=== PATIENT | male | born 1960 | race Caucasian/White ===

== ENCOUNTER 2017-02-25 15:05 | Emergency (ER) | payer BC ==
[2017-02-25 16:55] VITALS: BP 114/77
--- NOTE | 2017-02-25 18:21 | ED ---
Throat Pain/Nasal Congestion - HPI Summary HPI Summary: 56 male presents to ED with complaints of having a contact lense stuck in his right eye that began 1 week ago, Patient has been unable to get it out, states it is stuck under his eye lid. Denies vision loss or changes unless its tearing or contact is in visual field. Admits to some drainage over the past couple of days. Denies itchiness. No other complaints, no pain, just irritation. No PMHx. No medications or evaluation [facility]. No photophobia. - History of Current Complaint Chief Complaint: EDEyeProblem Hx Obtained From: Patient Onset/Duration: Sudden Onset, Lasting Weeks - 1 Severity: Mild Associated Signs And Symptoms: Positive: FB Sensation - right eye, contact lense Cough: None - Allergies/Home Medications Allergies/Adverse Reactions: Allergies Allergy/AdvReac Type Severity Reaction Status Date / Time Prochlorperazine Allergy Intermediate throat Verified 02/25/17 15:13 [From Compazine] swelling Codeine Allergy Mild Hives Verified 02/25/17 15:13 PMH/Surg Hx/FS Hx/Imm Hx Endocrine/Hematology History: Denies: Hx Diabetes Cardiovascular History: Denies: Hx Hypertension, Hx Pacemaker/ICD, Other Cardiovascular Problems/ Disorders Respiratory History: Denies: Other Respiratory Problems/Disorders GI History: Denies: Other GI Disorders Musculoskeletal History: Reports: Hx Back Problems - chronic low back pain Sensory History: Reports: Hx Contacts or Glasses - GLASSES, CONTACTS Denies: Hx Hearing Aid Opthamlomology History: Reports: Hx Contacts or Glasses - GLASSES, CONTACTS Neurological History: Reports: Other Neuro Impairments/Disorders - PAIN CLINIC PT Psychiatric History: Reports: Other Psychiatric Issues/Disorders - suboxone treatment Denies: Hx Panic Disorder - Surgical History Surgery Procedure, Year, and Place: hemilaminectomy 2008 Dr Sly Blake. ORIF right ring finger 2016 [facility] [place] Hx Anesthesia Reactions: No - Immunization History Immunizations Up to Date: Yes Infectious Disease History: No Infectious Disease History: Reports: Hx Hepatitis - HEP C Denies: History Other Infectious Disease, Traveled Outside the [place] in Last 30 Days - Family History Known Family History: Positive: None - Social History Alcohol Use: None Alcohol Amount: 2-4 PER WEEK Substance Use Type: Reports: None Smoking Status (MU): Former Smoker Type: Cigarettes Amount Used/How Often: 10 CIGS PER DAY Have You Smoked in the Last Year: Yes Review of Systems Constitutional: Negative Positive: Drainage, Erythema, Other - contact lense stuck in eye ENT: Negative Cardiovascular: Negative Respiratory: Negative Neurological: Negative All Other Systems Reviewed And Are Negative: Yes Physical Exam Triage Information Reviewed: Yes Vital Signs On Initial Exam: Initial Vitals Temp Pulse Resp BP Pulse Ox 97.9 F 73 16 122/78 96 02/25/17 15:14 02/25/17 15:14 02/25/17 15:14 02/25/17 15:14 02/25/17 15:14 Vital Signs Reviewed: Yes Appearance: Positive: Well-Appearing, No Pain Distress, Well-Nourished Skin: Positive: Warm, Dry. Negative: Cold, Cyanosis @, Pale, Erythema @ Head/Face: Positive: Normal Head/Face Inspection Eyes: Positive: EOMI, HOA, Conjunctiva Inflammed, Discharge - yellow-clear, some purulent, Other: - contact lense stuck in lower corner lateral right eye, removed without complication after numbing, with q-tip. no left over FB. entire contact lense removed. appears infected. left eye normal ENT: Positive: Normal ENT inspection, Hearing grossly normal, TMs normal Respiratory/Lung Sounds: Positive: Clear to Auscultation, Breath Sounds Present. Negative: Rales, Rhonchi, Wheezes Cardiovascular: Positive: Normal, RRR, Pulses are Symmetrical in both Upper and Lower Extremities. Negative: Murmur, Rub Musculoskeletal: Positive: Strength/ROM Intact Neurological: Positive: Normal, Sensory/Motor Intact, Alert, Oriented to Person Place, Time Procedures - Eye Procedure Alcaine Drops Administered: Yes - right eye contact lense removed without complication, tolerated well Eye FB Removal: removal w/ cotton swab Eye Irrigated w/ Saline (ccs): 100 Diagnostics - Vital Signs Vital Signs Temp Pulse Resp BP Pulse Ox 02/25/17 16:44 98.6 F 80 17 114/77 95 02/25/17 15:14 97.9 F 73 16 122/78 96 - Laboratory Lab Statement: Any lab studies that have been ordered have been reviewed, and results considered in the medical decision making process. EENT Course/Dx - Course Course Of Treatment: contact lense of right eye was removed without complication using qtip. patient tolerated procedure well. no other complaints. sent over antibiotic drops for conjunctivitis due to FB. Follow up with optho if new or worse symptoms. aware of worsening signs and symptoms. - Differential Diagnoses Differential Diagnoses: Conjunctivitis, Corneal Abrasion, Foreign Body - Diagnoses Provider Diagnoses: FB eye, Conjunctivitis, right eye Discharge - Discharge Plan Condition: Stable Disposition: HOME Prescriptions: Moxifloxacin 0.5% OPHTH(NF) [Vigamox 0.5% OPHTH(NF)] 1 drop RIGHT EYE Q3HR #1 [email or web address] Patient Education Materials: Eye Foreign Body (ED), Conjunctivitis (ED) Referrals: Carlo Melendez MD [Primary Care Provider] - Additional Instructions: use prescribed medication as directed for 7 days in right eye. do not touch eyes with fingers. do not wear contacts for atleast 7 days. when you do, wear new contacts and take out at bedtime. follow up wit eye doctor if new or worsening symptoms.
== END 2017-02-25 18:32 | disposition home or self-care (01) ==
LOC: ED 15:05
DX: T15.91XA Foreign body on external eye, part unspecified, right eye, initial encounter (principal); X58.XXXA Exposure to other specified factors, initial encounter; Y92.9 Unspecified place or not applicable; B19.20 Unspecified viral hepatitis C without hepatic coma; Z88.5 Allergy status to narcotic agent; M54.5 Low back pain; G89.29 Other chronic pain; Z87.891 Personal history of nicotine dependence
CPT/HCPCS: 99282

== ENCOUNTER → 2017-06-16 17:00 | Emergency (ER) | payer BC | END | disposition left against medical advice (07) | LOC: ED 17:00 | DX: T59.91XA Toxic effect of unspecified gases, fumes and vapors, accidental (unintentional), initial encounter (principal); Y92.9 Unspecified place or not applicable; Z53.21 Procedure and treatment not carried out due to patient leaving prior to being seen by health care provider ==

== ENCOUNTER 2017-06-17 14:11 | Emergency (ER) | payer SELFPAY ==
[2017-06-17 16:59] VITALS: BP 129/89
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
== END 2017-06-17 16:58 | disposition home or self-care (01) ==
LOC: ED 14:11
DX: M54.30 Sciatica, unspecified side (principal); M54.5 Low back pain; Z87.891 Personal history of nicotine dependence
CPT/HCPCS: 99281

== ENCOUNTER 2018-01-31 22:27 | Emergency (ER) | payer BC ==
[2018-01-31] MEDS ORDERED: Ciprofloxacin 0.3% OPTH.SOL* 2.5 ML BTL RIGHT EYE ONE (22:44)
--- NOTE | 2018-01-31 22:46 | ED ---
Throat Pain/Nasal Congestion - HPI Summary HPI Summary: 57 year old male presents with contact in left eye for the past 2 days. He states been having some mucous discharge. He states that he tried to remove the contact. He denies any feeling that he scratched his cornea. He denies any change in vision. He has not been wearing contacts. He has minimal pain. States this has happened before. - History of Current Complaint Chief Complaint: EDEyeProblem Time Seen by Provider: 01/31/18 22:40 - Allergies/Home Medications Allergies/Adverse Reactions: Allergies Allergy/AdvReac Type Severity Reaction Status Date / Time codeine Allergy Hives Verified 01/31/18 22:32 prochlorperazine Allergy THROAT Verified 01/31/18 22:32 [From Compazine] SWELLING PMH/Surg Hx/FS Hx/Imm Hx Endocrine/Hematology History: Denies: Hx Diabetes Cardiovascular History: Denies: Hx Hypertension, Hx Pacemaker/ICD, Other Cardiovascular Problems/ Disorders Respiratory History: Denies: Other Respiratory Problems/Disorders GI History: Denies: Other GI Disorders Musculoskeletal History: Reports: Hx Back Problems - chronic low back pain Sensory History: Reports: Hx Contacts or Glasses - GLASSES, CONTACTS Denies: Hx Hearing Aid Opthamlomology History: Reports: Hx Contacts or Glasses - GLASSES, CONTACTS Neurological History: Reports: Other Neuro Impairments/Disorders - PAIN CLINIC PT Psychiatric History: Reports: Other Psychiatric Issues/Disorders - suboxone treatment Denies: Hx Panic Disorder - Surgical History Surgery Procedure, Year, and Place: hemilaminectomy 2008 Dr Sly Blake. ORIF right ring finger [place] [facility] [place] Hx Anesthesia Reactions: No Infectious Disease History: No Infectious Disease History: Reports: Hx Hepatitis - HEP C Denies: History Other Infectious Disease, Traveled Outside the [place] in Last 30 Days - Family History Known Family History: Positive: None Negative: Cardiac Disease - Social History Alcohol Use: None Alcohol Amount: 2-4 PER WEEK Substance Use Type: Reports: None Smoking Status (MU): Former Smoker Type: Cigarettes Amount Used/How Often: 10 CIGS PER DAY Have You Smoked in the Last Year: Yes Review of Systems Negative: Fever Positive: Other - foreign body left eye Negative: Chest Pain Negative: Shortness Of Breath All Other Systems Reviewed And Are Negative: Yes Physical Exam Triage Information Reviewed: Yes Vital Signs On Initial Exam: Initial Vitals Temp Pulse Resp BP Pulse Ox 97.5 F 80 16 133/87 95 01/31/18 22:29 01/31/18 22:29 01/31/18 22:29 01/31/18 22:29 01/31/18 22:29 Vital Signs Reviewed: Yes Appearance: Positive: Well-Appearing Skin: Positive: Warm, Dry Head/Face: Positive: Normal Head/Face Inspection Eyes: Positive: Normal, EOMI, HOA, Conjunctiva Inflammed, Other: - removed contact from left eye ENT: Positive: Pharynx normal Respiratory/Lung Sounds: Positive: Clear to Auscultation, Breath Sounds Present Cardiovascular: Positive: Normal, RRR Musculoskeletal: Positive: Normal Neurological: Positive: Normal Psychiatric: Positive: Normal Procedures - Eye Procedure Left Eye FB Removal: removal w/ cotton swab Diagnostics - Vital Signs Vital Signs Temp Pulse Resp BP Pulse Ox 01/31/18 22:29 97.5 F 80 16 133/87 95 - Laboratory Lab Statement: Any lab studies that have been ordered have been reviewed, and results considered in the medical decision making process. EENT Course/Dx - Course Course Of Treatment: 57 year old male presents with contact in left eye for the past 2 days. He states been having some mucous discharge. He states that he tried to remove the contact. He denies any feeling that he scratched his cornea. He denies any change in vision. He has not been wearing contacts. He has minimal pain. States this has happened before. On exam has contact in left eye. removed contact. Discussed do not have flu-more but will treat as an abrasion with Cipro. Patient will follow up with optho if no improvement. Patient understands and agrees with plan. - Differential Diagnoses Differential Diagnoses: Conjunctivitis, Corneal Abrasion, Foreign Body - Diagnoses Provider Diagnoses: Foreign body in eye Discharge - Sign-Out/Discharge Documenting (check all that apply): Patient Departure - Discharge Plan Condition: Good Disposition: HOME Patient Education Materials: Eye Foreign Body (ED) Referrals: Carlo Melendez MD [Primary Care Provider] - Chidi Pack MD [Medical Doctor] - Additional Instructions: Place 1 drop in eye 4 times a day for 5 days Use artificial tears or saline to rinse eye for symptomatic relief Take Tylenol or ibuprofen for pain Follow up with ophthalmology if no improvement in 5 days Return to ED if develop any new or worsening symptoms - Billing Disposition and Condition Condition: GOOD Disposition: Home
[2018-01-31 23:44] VITALS: BP 0/0
== END 2018-01-31 23:43 | disposition home or self-care (01) ==
LOC: ED 22:27
DX: T15.92XA Foreign body on external eye, part unspecified, left eye, initial encounter (principal); X58.XXXA Exposure to other specified factors, initial encounter; Y92.9 Unspecified place or not applicable
CPT/HCPCS: 99281; A9270-GY

== ENCOUNTER 2018-02-27 11:08 | Emergency (ER) | payer BC ==
--- NOTE | 2018-02-27 12:09 | ED ---
Abdominal Pain/Male - HPI Summary HPI Summary: 57 year old M presenting to [facility] complains of intermittent episodes of LLQ abdominal pain lasting 30 minutes since 20:00 last night, worse since two hours ago. He describes the pain as dull/aching/exhausting. Symptoms aggravated by exertion. Symptoms alleviated by lying down. Patient reports fatigue. He states that the episodes of pain are preceded by physical activity. Patient lifted weights at gym last night before abdominal pain onset and was mowing lawn this morning before pain started again. He describes a similar episode of abdominal pain two months ago while he was visiting his niece in [place]. - History of Current Complaint Chief Complaint: EDAbdPain Stated Complaint: ABD PAIN Time Seen by Provider: 02/27/18 11:49 Hx Obtained From: Patient Onset/Duration: Lasting Days - 1, Still Present Timing: Intermittent, Lasting Minutes - 30 Location: Discrete At: LLQ Character: Dull, Other: - ache, exhausting Aggravating Factor(s): Other: - exertion Alleviating Factor(s): Other: - lying down Associated Signs And Symptoms: Positive: Other - fatigue - Allergies/Home Medications Allergies/Adverse Reactions: Allergies Allergy/AdvReac Type Severity Reaction Status Date / Time codeine Allergy Hives Verified 02/27/18 11:18 prochlorperazine Allergy THROAT Verified 02/27/18 11:18 [From Compazine] SWELLING Home Medications: Home Medications Nicotine PATCH 21 MG/24 HR* 1 patch TRANSDERM DAILY 02/27/18 [History Confirmed 02/27/18] PMH/Surg Hx/FS Hx/Imm Hx Previously Healthy: No Endocrine/Hematology History: Denies: Hx Diabetes Cardiovascular History: Denies: Hx Hypertension, Hx Pacemaker/ICD, Other Cardiovascular Problems/ Disorders Respiratory History: Denies: Other Respiratory Problems/Disorders GI History: Denies: Other GI Disorders Musculoskeletal History: Reports: Hx Back Problems - chronic low back pain Sensory History: Reports: Hx Contacts or Glasses - GLASSES, CONTACTS Denies: Hx Hearing Aid Opthamlomology History: Reports: Hx Contacts or Glasses - GLASSES, CONTACTS Neurological History: Reports: Other Neuro Impairments/Disorders - PAIN CLINIC PT Psychiatric History: Reports: Hx Substance Abuse, Other Psychiatric Issues/ Disorders - suboxone treatment Denies: Hx Panic Disorder - Surgical History Surgery Procedure, Year, and Place: hemilaminectomy 2009 Dr Sly Blake. [place] right ring finger [place] [facility] [place] Anesthesia Reactions: No Infectious Disease History: Yes Infectious Disease History: Reports: Hx Hepatitis - HEP C Denies: History Other Infectious Disease, Traveled Outside the [place] in Last 30 Days - Family History Known Family History: Positive: Other - rheumatoid arthritis Negative: Cardiac Disease - Social History Alcohol Use: Weekly Alcohol Amount: 2-4 PER WEEK Hx Substance Use: Yes Hx Tobacco Use: Yes Smoking Status (MU): Former Smoker Type: Cigarettes Amount Used/How Often: 10 CIGS PER DAY Have You Smoked in the Last Year: Yes Review of Systems Positive: Fatigue Positive: Abdominal Pain All Other Systems Reviewed And Are Negative: Yes Physical Exam - Summary Physical Exam Summary: Appearance: The patient is well-nourished in no acute distress and in no acute pain. Skin: The skin is warm and dry and skin color reflects adequate perfusion. HEENT: The head is normocephalic and atraumatic. The pupils are equal and reactive. The conjunctivae are clear and without drainage. Nares are patent and without drainage. Mouth reveals moist mucous membranes and the throat is without erythema and exudate. The external ears are intact. The ear canals are patent and without drainage. The tympanic membranes are intact. Neck: The neck is supple with full range of motion and non-tender. There are no carotid bruits. There is no neck vein distension. Respiratory: Chest is non-tender. Lungs are clear to auscultation and breath sounds are symmetrical and equal. Cardiovascular: Heart is regular rate and rhythm. There is no murmur or rub auscultated. There is no peripheral edema and pulses are symmetrical and equal. Abdomen: The abdomen is soft and non-tender. There are normal bowel sounds heard in all four quadrants and there is no organomegaly palpated. Musculoskeletal: There is no back tenderness noted. Extremities are non-tender with full range of motion. There is good capillary refill. There is no peripheral edema or calf tenderness elicited. Neurological: Patient is alert and oriented to person, place and time. The patient has symmetrical motor strength in all four extremities. Cranial nerves are grossly intact. Deep tendon reflexes are symmetrical and equal in all four extremities. Psychiatric: The patient has an appropriate affect and does not exhibit any anxiety or depression. Triage Information Reviewed: Yes Vital Signs On Initial Exam: Initial Vitals Temp Pulse Resp BP Pulse Ox 97.9 F 74 16 112/79 97 02/27/18 11:13 02/27/18 11:13 02/27/18 11:13 02/27/18 11:13 02/27/18 11:13 Vital Signs Reviewed: Yes Diagnostics - Vital Signs Vital Signs Temp Pulse Resp BP Pulse Ox 02/27/18 11:13 97.9 F 74 16 112/79 97 - Laboratory Result Diagrams: 02/27/18 12:05 02/27/18 12:05 Lab Statement: Any lab studies that have been ordered have been reviewed, and results considered in the medical decision making process. - EKG 1150 Cardiac Rate: NL - 69 BPM EKG Rhythm: Sinus Rhythm ST Segment: Normal Ectopy: None EKG Interpretation: Normal sinus rhythm, normal ST, no ectopy, no STEMI Re-Evaluation - Re-Evaluation First Eval Re-Evaluation Time: 14:49 Comment: Patient feels fine and is aware that we are awaiting second troponin test Second Eval Re-Evaluation Time: 16:11 Comment: Patient is updated on his second troponin test, which was normal. He is agreeable to discharge. Abdominal Pain Fem Course/Dx - Course Course Of Treatment: Mr. Mccormick presented complaining that while he was mowing the lawn this morning he suddenly felt a complete exhaustion feeling that required that he lied down. He is equivocal but also feeling a dull ache or pressure sensation in his left periumbilical area. He had a similar episode yesterday evening. He had been working out in the gym and came home and loaded a couple of items into the truck and went inside and then it occurred. Both episodes resolved after resting. He had a similar episode about a month ago that lasted about 6 hours. Yesterday while he was at the gym he felt fine and exercised hard. He had stable vital signs and was nontoxic in appearance on arrival and was placed on the monitor and labs were drawn. Labs including a delayed troponin were negative. He did have microscopic hematuria. We discussed the differential for his symptoms which is large given the vagueness. This could be an anginal equivalent but his troponins are fine and it is not consistently with exercise. This could be a kidney stone which she has had before but he didn't really have any pain. I recommended close follow-up with his PCP and do not think that anything immediately dangerous is happening. - Diagnoses Provider Diagnoses: Near syncope Discharge - Sign-Out/Discharge Documenting (check all that apply): Patient Departure - Discharge - Discharge Plan Condition: Stable Disposition: HOME Patient Education Materials: Near Syncope (ED) Referrals: Carlo Melendez MD [Primary Care Provider] - 2 Days Additional Instructions: Follow up with your primary care provider in 2 days. RETURN TO THE EMERGENCY DEPARTMENT FOR NEW OR WORSENING SYMPTOMS. - Billing Disposition and Condition Condition: STABLE Disposition: Home - Attestation Statements Document Initiated by Scribe: Yes Documenting Scribe: Petra Hampton Provider For Whom Scribe is Documenting (Include Credential): Rodrigo Che MD Scribe Attestation: IPetra, scribed for Rodrigo Che MD on 02/27/18 at 1800. Scribe Documentation Reviewed: Yes Provider Attestation: The documentation as recorded by the scribePetra accurately reflects the service I personally performed and the decisions made by me, Rodrigo Che MD
[2018-02-27 12:15] LABS: ABS Basophils 0 10^3/ul (0-0.2); ABS Eosinophils 0.2 10^3/ul (0-0.6); ABS Lymphocytes 2.7 10^3/ul (1.0-4.8); ABS Monocytes 0.5 10^3/ul (0-0.8); ABS Neutrophils 4.6 10^3/ul (1.5-7.7); ABS Nucleated RBC 0 10^3/ul; Eosinophil % 1.9 % (0-6); Hematocrit 44 % (42-52); Hemoglobin 15.1 g/dl (14.0-18.0); Lymphocyte % 34.1 % (25-47); Mean Corpuscular HGB Conc 34 g/dl (31-36); Mean Corpuscular Hemoglobin 31 pg (27-31); Mean Corpuscular Volume 90 fL (80-94); Mean Platelet Volume 9.7 um3 (7.4-10.4); Nucleated Red Blood Cells % 0.1; Platelet Count 185 10^3/ul (150-450); Red Blood Count 4.92 10^6/ul (4.00-5.40); Red Cell Distribution Width 13 % (10.5-15)
[2018-02-27 12:31] LABS: EGFR Non-African American 96.2 (>60)
[2018-02-27 15:03] LABS: Urine Appearance Cloudy; Urine Blood 3+ (Negative); Urine Color Yellow; Urine Ketones Trace (Negative); Urine Protein 1+(30 mg/dL) (Negative); Urine Red Blood Cell 3+(>10/hpf) (Absent); Urine Specific Gravity 1.026 (1.010-1.030); Urine Urobilinogen Negative (Negative); Urine White Blood Cell Trace(0-5/hpf) (Absent)
[2018-02-27 16:23] VITALS: BP 130/84
== END 2018-02-27 16:23 | disposition home or self-care (01) ==
LOC: ED 11:08
DX: R55 Syncope and collapse (principal)
CPT/HCPCS: 36415; 80053; 81003; 81015; 83605; 84484; 85025; 86140; 87086; 93005; 99283

== ENCOUNTER 2018-03-03 10:31 | Emergency (ER) | payer BC ==
[2018-03-03] MEDS ORDERED: Ondansetron INJ* 2 MG/ML VIAL IV ONE (11:17)
[2018-03-03] MEDS ORDERED: Ketorolac INJ* 30 MG/ML 1 ML VIAL IV PUSH ONE (11:17)
[2018-03-03] MEDS ORDERED: NS 0.9% 1000 ML* 1,000 ML IV ONE (11:18)
[2018-03-03 11:35] LABS: ABS Basophils 0 10^3/ul (0-0.2); ABS Eosinophils 0.1 10^3/ul (0-0.6); ABS Lymphocytes 2.1 10^3/ul (1.0-4.8); ABS Monocytes 0.5 10^3/ul (0-0.8); ABS Nucleated RBC 0 10^3/ul; Eosinophil % 0.6 % (0-6); Hematocrit 45 % (42-52); Hemoglobin 15.1 g/dl (14.0-18.0); Lymphocyte % 16.3 % (25-47); Mean Corpuscular HGB Conc 34 g/dl (31-36); Mean Corpuscular Hemoglobin 31 pg (27-31); Mean Corpuscular Volume 90 fL (80-94); Mean Platelet Volume 9.2 um3 (7.4-10.4); Nucleated Red Blood Cells % 0; Platelet Count 178 10^3/ul (150-450); Red Blood Count 4.97 10^6/ul (4.00-5.40); Red Cell Distribution Width 13 % (10.5-15); White Blood Count 12.7 10^3/ul (3.5-10.8)
[2018-03-03 12:18] LABS: EGFR Non-African American 82.1 (>60)
[2018-03-03] MEDS ORDERED: Iohexol 300* (CONTRAST) 10 ML SDV IV ONE (13:58)
--- NOTE | 2018-03-03 14:56 | RAD ---
INDICATION: Left lower quadrant abdominal pain. COMPARISON: There are no relevant prior studies available for comparison. TECHNIQUE: A CT scan of the abdomen and pelvis was performed with intravenous and without oral contrast following intravenous injection of 136 ml of Omnipaque 300 nonionic contrast. Contiguous axial sections were obtained from the lung bases through the symphysis pubis. Images were reconstructed in the coronal and sagittal planes. FINDINGS: LUNGS: There is mild dependent bilateral lower lobe subsegmental atelectasis. No pleural effusion is present. LIVER: The liver is normal in size. There are a few small hypodense lesions within the liver measuring up to 4 mm in size which are too small to characterize by CT possibly representing small cysts. GALLBLADDER: No calcified gallstones are seen. BILE DUCTS: No intra or extrahepatic ductal distention is seen. SPLEEN: The spleen is normal in size without significant focal abnormality. PANCREAS: The pancreas is normal in size. No ductal distention or calcifications are seen. ADRENAL GLANDS: The adrenal glands are normal in size. KIDNEYS: The kidneys are normal in size. No renal calculi are seen. There appear to be 2 calculi present in the proximal left ureter. The larger calculus measures 4 x1.5 mm in size and the smaller calculus measures approximately 3 x 1 mm in size. These are causing moderate hydronephrosis. There is left perinephric stranding and a delayed nephrogram. AORTA: The aorta is normal in caliber without significant calcific plaque. LYMPH NODES: No significantly enlarged lymph nodes are seen. BOWEL: The stomach, small and large bowel appear nondistended. The appendix appears to be within normal limits. There are few scattered diverticuli. There is no evidence for diverticulitis or colitis. PELVIC ORGANS: No bladder wall thickening or calculi are seen. The prostate gland is normal in size. PERITONEUM: No free intraperitoneal air or fluid is seen. BONES: No significant focal osseous abnormality is seen. IMPRESSION: THERE ARE 2 CALCULI IN THE PROXIMAL LEFT URETER CAUSING MODERATE HYDRONEPHROSIS.
[2018-03-03 15:51] LABS: Urine Appearance Clear; Urine Blood 2+ (Negative); Urine Color Yellow; Urine Ketones Negative (Negative); Urine Protein Negative (Negative); Urine Red Blood Cell 3+(>10/hpf) (Absent); Urine Urobilinogen Negative (Negative); Urine White Blood Cell Trace(0-5/hpf) (Absent)
[2018-03-03 16:30] VITALS: BP 129/86
--- NOTE | 2018-03-05 13:23 | ED ---
Abdominal Pain/Male - HPI Summary HPI Summary: Pt. is a 57 y.o male who presents to the ER for abd. pain and vomiting x several days. Pt. was seen in ED 4 days ago for similar symptoms. Denies past medical history other than narcotic addiction and is currently on suboxone. Pt. denies fever, CP, SOB, diarrhea, urinary sxs. Pain is constant without modifying factors. Pain is located to left side and groin. No testicle pain or swelling. Sxs are moderate in severity. - History of Current Complaint Chief Complaint: EDAbdPain Stated Complaint: LT FLANK PAIN Time Seen by Provider: 03/03/18 11:08 Hx Obtained From: Patient Pain Intensity: 0 Pain Scale Used: 0-10 Numeric - Allergies/Home Medications Allergies/Adverse Reactions: Allergies Allergy/AdvReac Type Severity Reaction Status Date / Time codeine Allergy Hives Verified 03/03/18 11:55 prochlorperazine Allergy THROAT Verified 03/03/18 11:55 [From Compazine] SWELLING Home Medications: Home Medications Nicotine PATCH 21 MG/24 HR* 21 mg TRANSDERM DAILY 03/03/18 [History Confirmed ] PMH/Surg Hx/FS Hx/Imm Hx Previously Healthy: Yes Endocrine/Hematology History: Denies: Hx Diabetes Cardiovascular History: Denies: Hx Hypertension, Hx Pacemaker/ICD, Other Cardiovascular Problems/ Disorders Respiratory History: Denies: Other Respiratory Problems/Disorders GI History: Denies: Other GI Disorders History: Denies: Hx Renal Disease Musculoskeletal History: Reports: Hx Back Problems - chronic low back pain Sensory History: Reports: Hx Contacts or Glasses - GLASSES, CONTACTS Denies: Hx Hearing Aid Opthamlomology History: Reports: Hx Contacts or Glasses - GLASSES, CONTACTS Neurological History: Reports: Other Neuro Impairments/Disorders - PAIN CLINIC PT Psychiatric History: Reports: Hx Substance Abuse, Other Psychiatric Issues/ Disorders - suboxone treatment Denies: Hx Panic Disorder - Surgical History Surgery Procedure, Year, and Place: hemilaminectomy 2008 Dr Sly Blake. ORIF right ring finger [place] [facility] [place]x Anesthesia Reactions: No - Immunization History Immunizations Up to Date: Yes Infectious Disease History: No Infectious Disease History: Reports: Hx Hepatitis - HEP C Denies: History Other Infectious Disease, Traveled Outside the US in Last 30 Days - Family History Known Family History: Positive: Other - rheumatoid arthritis Negative: Cardiac Disease - Social History Occupation: Employed Full-time Lives: With Family Alcohol Use: Weekly Alcohol Amount: 2-4 PER WEEK Hx Substance Use: Yes Substance Use Type: Reports: None Substance Use Comment - Amount & Last Used: history of substance abuse on Suboxone Hx Tobacco Use: Yes Smoking Status (MU): Former Smoker Type: Cigarettes Amount Used/How Often: 10 CIGS PER DAY Have You Smoked in the Last Year: Yes Review of Systems Constitutional: Negative Eyes: Negative ENT: Negative Cardiovascular: Negative Respiratory: Negative Positive: Abdominal Pain, Vomiting Genitourinary: Negative Musculoskeletal: Negative Neurological: Negative All Other Systems Reviewed And Are Negative: Yes Physical Exam Triage Information Reviewed: Yes Vital Signs On Initial Exam: Initial Vitals Temp Pulse Resp BP Pulse Ox 96.0 F 67 14 137/89 100 03/03/18 10:47 03/03/18 10:47 03/03/18 10:47 03/03/18 10:47 03/03/18 10:47 Vital Signs Reviewed: Yes Appearance: Positive: Pain Distress - Pt. sitting on side of bed, poor eye contact, diaphoretic and pale. Skin: Positive: Warm, Dry Head/Face: Positive: Normal Head/Face Inspection Eyes: Positive: Normal, EOMI Neck: Positive: Supple Respiratory/Lung Sounds: Positive: Clear to Auscultation, Breath Sounds Present Cardiovascular: Positive: Normal, RRR Abdomen Description: Positive: Other: - ABd. is soft with pain across the lower quadrants. No rebound tenderness or gaurding. Neurological: Positive: Normal, CN Intact II-III Psychiatric: Positive: Affect/Mood Appropriate Diagnostics - Vital Signs Vital Signs Temp Pulse Resp BP Pulse Ox 03/03/18 16:31 98.5 F 88 18 129/86 97 03/03/18 16:30 98.5 F 88 18 129/86 97 03/03/18 16:00 90 17 96 03/03/18 15:51 90 13 136/90 89 03/03/18 15:22 92 18 137/86 97 03/03/18 15:00 88 14 94 03/03/18 14:51 90 16 105/69 95 03/03/18 14:00 88 11 95 03/03/18 13:51 86 12 112/76 97 03/03/18 13:21 86 14 124/81 95 03/03/18 13:00 78 21 98 03/03/18 12:51 66 17 144/96 96 03/03/18 12:21 71 16 140/95 97 03/03/18 12:00 69 13 97 03/03/18 11:51 74 6 143/96 96 03/03/18 11:50 70 98 03/03/18 10:47 96.0 F 67 14 137/89 100 - Laboratory Lab Results: Lab Results 03/03/18 03/03/18 03/03/18 Range/Units 11:26 11:26 11:26 WBC 12.7 H (3.5-10.8) 10^3/ul RBC 4.97 (4.00-5.40) 10^6/ul Hgb 15.1 (14.0-18.0) g/dl Hct 45 (42-52) % MCV 90 (80-94) fL MCH 31 (27-31) pg MCHC 34 (31-36) g/dl RDW 13 (10.5-15) % Plt Count 178 (150-450) 10^3/ul MPV 9.2 (7.4-10.4) um3 Neut % (Auto) 78.6 (38-83) % Lymph % (Auto) 16.3 L (25-47) % Bollinger % (Auto) 4.2 (0-7) % Eos % (Auto) 0.6 (0-6) % Baso % (Auto) 0.3 (0-2) % Absolute Neuts (auto) 10.0 H (1.5-7.7) 10^3/ul Absolute Lymphs (auto) 2.1 (1.0-4.8) 10^3/ul Absolute Monos (auto) 0.5 (0-0.8) 10^3/ul Absolute Eos (auto) 0.1 (0-0.6) 10^3/ul Absolute Basos (auto) 0 (0-0.2) 10^3/ul Absolute Nucleated RBC 0 10^3/ul Nucleated RBC % 0 Sodium 138 (135-145) mmol/L Potassium 4.4 (3.5-5.0) mmol/L Chloride 106 (101-111) mmol/L Carbon Dioxide 25 (22-32) mmol/L Anion Gap 7 (2-11) mmol/L BUN 14 (6-24) mg/dL Creatinine 0.94 (0.67-1.17) mg/dL Est GFR ( Amer) 99.4 (>60) Est GFR (Non-Af Amer) 82.1 (>60) BUN/Creatinine Ratio 14.9 (8-20) Glucose 152 H (70-100) mg/dL Lactic Acid 1.6 (0.5-2.0) mmol/L Calcium 9.3 (8.6-10.3) mg/dL Total Bilirubin 0.60 (0.2-1.0) mg/dL AST 26 (13-39) U/L ALT 19 (7-52) U/L Alkaline Phosphatase 55 (34-104) U/L Troponin I 0.00 (<0.04) ng/mL C-Reactive Protein < 1.00 (<8.01) mg/L Total Protein 7.4 (6.4-8.9) g/dL Albumin 4.5 (3.2-5.2) g/dL Globulin 2.9 (2-4) g/dL Albumin/Globulin Ratio 1.6 (1-3) Lipase 12 (11.0-82.0) U/L Urine Color Urine Appearance Urine pH (5-9) Ur Specific [place] (1.010-1.030) Urine Protein (Negative) Urine Ketones (Negative) Urine Blood (Negative) Urine Nitrate (Negative) Urine Bilirubin (Negative) Urine Urobilinogen (Negative) Ur Leukocyte Esterase (Negative) Urine WBC (Auto) (Absent) Urine RBC (Auto) (Absent) Urine Bacteria (Absent) Urine Yeast (Absent) Urine Glucose (Negative) 03/03/18 Range/Units 15:17 WBC (3.5-10.8) 10^3/ul RBC (4.00-5.40) 10^6/ul Hgb (14.0-18.0) g/dl Hct (42-52) % MCV (80-94) fL MCH (27-31) pg MCHC (31-36) g/dl RDW (10.5-15) % Plt Count (150-450) 10^3/ul MPV (7.4-10.4) um3 Neut % (Auto) (38-83) % Lymph % (Auto) (25-47) % Bollinger % (Auto) (0-7) % Eos % (Auto) (0-6) % Baso % (Auto) (0-2) % Absolute Neuts (auto) (1.5-7.7) 10^3/ul Absolute Lymphs (auto) (1.0-4.8) 10^3/ul Absolute Monos (auto) (0-0.8) 10^3/ul Absolute Eos (auto) (0-0.6) 10^3/ul Absolute Basos (auto) (0-0.2) 10^3/ul Absolute Nucleated RBC 10^3/ul Nucleated RBC % Sodium (135-145) mmol/L Potassium (3.5-5.0) mmol/L Chloride (101-111) mmol/L Carbon Dioxide (22-32) mmol/L Anion Gap (2-11) mmol/L BUN (6-24) mg/dL Creatinine (0.67-1.17) mg/dL Est GFR ( Amer) (>60) Est GFR (Non-Af Amer) (>60) BUN/Creatinine Ratio (8-20) Glucose (70-100) mg/dL Lactic Acid (0.5-2.0) mmol/L Calcium (8.6-10.3) mg/dL Total Bilirubin (0.2-1.0) mg/dL AST (13-39) U/L ALT (7-52) U/L Alkaline Phosphatase (34-104) U/L Troponin I (<0.04) ng/mL C-Reactive Protein (<8.01) mg/L Total Protein (6.4-8.9) g/dL Albumin (3.2-5.2) g/dL Globulin (2-4) g/dL Albumin/Globulin Ratio (1-3) Lipase (11.0-82.0) U/L Urine Color Yellow Urine Appearance Clear Urine pH 6.0 (5-9) Ur Specific [place] 1.040 H (1.010-1.030) Urine Protein Negative (Negative) Urine Ketones Negative (Negative) Urine Blood 2+ A (Negative) Urine Nitrate Negative (Negative) Urine Bilirubin Negative (Negative) Urine Urobilinogen Negative (Negative) Ur Leukocyte Esterase Negative (Negative) Urine WBC (Auto) Trace(0-5/hpf) (Absent) Urine RBC (Auto) 3+(>10/hpf) A (Absent) Urine Bacteria Absent (Absent) Urine Yeast Present A (Absent) Urine Glucose Negative (Negative) Result Diagrams: 03/03/18 11:26 03/03/18 11:26 Lab Statement: Any lab studies that have been ordered have been reviewed, and results considered in the medical decision making process. Abdominal Pain Fem Course/Dx - Course Course Of Treatment: Pt. presenting with ongoing abd. pain and vomiting. On initial exam pt. is diaphoretic and pale. He appears in significant discomfort. He was placed on monitor and IV started. Will obtain labs, ecg and ct scan. He was given iv fluids, zofran and toradol. ECG is uncharged from prior tracing several days ago, no STEMI. Labs show mild WBC of 12.7 ,otherwise unremarkable. U/A shows elevated specific gravity and blood without signs of infection. CT scan shows a 2 proximal calculus in the left proximal ureter with moderate hydro , stones measure 4 and 3mm, reading per radiology. On re-exam pt. is feeling much better and is tolerating POs. Pain has improved. Results discuseed. Will rx zofran and flomax. To increae fluids and strain urine. Can rotate between tylenol and motrin for pain control. To schedule f.u with urology if sxs persist. To return to ER for increased pain, vomting, fever. Pt .understands and agrees with plan. - Diagnoses Differential Diagnosis/HQI/PQRI: Abdominal Aortic Aneurysm, ACS, AMI, Appendicitis, Bowel Obstruction, Diverticulitis, Ischemic Bowel, Renal Colic, Ureteral Stone Provider Diagnoses: Hydronephrosis, Urolithiasis Discharge - Sign-Out/Discharge Documenting (check all that apply): Patient Departure - Discharge Plan Condition: Good Disposition: HOME Prescriptions: Ondansetron TAB* [Zofran 4 MG Tab*] 4 mg PO Q6H PRN #12 tab PRN Reason: Nausea Tamsulosin CAP* [Flomax CAP*] 0.4 mg PO DAILY #5 cap Patient Education Materials: Kidney Stones (ED) Referrals: Carlo Melendez MD [Primary Care Provider] - Chance Soto MD [Medical Doctor] - Additional Instructions: Schedule a follow up appointment with urology and PCP Take medication as directed Increase fluids and rest Strain urine Can rotate between tylenol and motrin for pain control Return to ER for uncontrollable vomiting, pain or fever - Billing Disposition and Condition Condition: GOOD Disposition: Home
== END 2018-03-03 16:31 | disposition home or self-care (01) ==
LOC: ED 10:31
DX: N13.30 Unspecified hydronephrosis (principal); N20.9 Urinary calculus, unspecified; R10.9 Unspecified abdominal pain; R11.0 Nausea; Z87.891 Personal history of nicotine dependence
CPT/HCPCS: 36415; 74177; 80053; 81003; 81015; 83605; 83690; 84484; 85025; 86140; 87040; 87086; 93005; 96374; 96375; 99283; J1885; J2405; Q9967

== ENCOUNTER → 2018-03-10 09:07 | Day surgery (SDC) | payer BC ==
--- NOTE | 2018-03-10 06:49 | HP ---
CC: Dr. Minh Melendez * ADMITTING HISTORY AND PHYSICAL: DATE OF ADMISSION: 03/10/18 ADMITTING DIAGNOSES: 1. Left ureteral calculi. 2. Left hydronephrosis. PLANNED PROCEDURE: Left stent insertion ( to be followed in the near future by lithotripsy). SURGEON: Dr. Bassett. HISTORY OF PRESENT ILLNESS: Satish Mccormick is a 57-year-old gentleman who states that he had episodic left flank pain since November of 2017. Eventually, the pain got very severe and he went to the emergency room and a CT scan showed a left hydronephrosis secondary to 2 calculi adjacent to each other in the left proximal ureter. He is still taking ibuprofen 4 to 5 times a day, which is keeping the pain under control and on a followup x- ray, I did not feel any change in the position of the calcification earlier CT scan. Since he has had the pain episodically for 3 months, the plan is to bring him in for left stent insertion, to be followed at some point in the near future by lithotripsy. PAST MEDICAL HISTORY: Significant for: 1. Opioid addiction. 2. History of renal calculi. 3. Hypogonadism. PAST SURGICAL HISTORY: Significant for L4-5 laminectomy in 2007 and right finger surgery. MEDICATIONS: On admission: 1. Suboxone daily. 2. Androderm daily. 3. Flomax 0.4 mg daily. 4. Ibuprofen 3 to 4 times a day for the last several weeks or months. ALLERGIES AND INTOLERANCES: CODEINE and COMPAZINE. SOCIAL HISTORY: Smoking history, he is a former smoker, who quit 2 to 3 years ago and had about a [id number] smoking history prior to that. REVIEW OF SYSTEMS: He is otherwise in excellent health. There is no history of diabetes mellitus or any other major systemic illness. PHYSICAL EXAMINATION GENERAL: Reveals a pleasant, middle-aged gentleman, who is in moderate discomfort. VITAL SIGNS: Blood pressure is 130/80, pulse 84 per minute and regular. LUNGS: Clear bilaterally. CARDIOVASCULAR: Regular rate and rhythm. S1, S2. ABDOMEN: Soft with left flank tenderness. IMPRESSION: I reviewed the CT and x-ray and had a detailed discussion with Mr. Mccormick regarding the treatment option. I offered him the option of trying to continue conservative management, but he feels that he has had the pain episodically for 3 months and the calcification still seems to be large in the proximal left ureter. PLAN: Plan is for left stent insertion ( to be followed in the near future by lithotripsy). [id number]/[facility] #: [id number] [place]
[~2018-03-10 09:07] MED LIST: Acetaminophen IV 1GM/100ML * 1,000 MG/100 ML VIAL IVPB ONE; Acetaminophen IV 1GM/100ML * 100 ML ONE; Dexamethasone IV* 4 MG/ML 1 ML (4 MG) ONE; EPHEDrine (Pressors)* 50 MG/ML VIAL ONE; Gentamicin ADULT (*) 160 MG in NS 0.9% 100 ML* 100 ML IVPB ONE; Iohexol 180 (CONTRAST) 10 ML SDV IV ONE; Ketorolac INJ* 30 MG/ML 1 ML VIAL ONE; Midazolam* 1 MG/ML 5 ML VIAL (5 MG) ONE; Naloxone* 0.4 MG/ML 1 ML VIAL IV PRN; Ondansetron INJ* 2 MG/ML VIAL IV PRN; Ondansetron INJ* 2 MG/ML VIAL ONE; Propofol* 10 MG/ML 20 ML BTL IV PUSH ONE; Tamsulosin CAP* 0.4 MG ONE; cefTRIAXone(*) 2 GM ADDV.VIAL IVPB ONE; fentaNYL* 50 MCG/ML 2 ML VIAL (100 MCG VIAL) IV PRN; fentaNYL* 50 MCG/ML 2 ML VIAL (100 MCG VIAL) ONE
--- NOTE | 2018-03-10 12:05 | RAD ---
INDICATION: Cystoscopy, LEFT retrograde pyelogram, ureteroscopy, laser lithotripsy, stone extraction, stent placement. Technique: 7 seconds of?fluoroscopy?was provided?for the physician proceduralist. REPORT: LEFT retrograde pyelogram documents moderate severe pelvicaliectasis. LEFT ureteral stent placed. IMPRESSION: Procedural control films. CPT II Codes: G9500
[2018-03-10 12:56] VITALS: BP 130/82
--- NOTE | 2018-03-11 08:40 | OP ---
CC: Dr. Minh Melendez * DATE OF OPERATION: 03/10/18 - SDS DATE OF : [birth year] - AGE: 57 years male. SURGEON: Ehsan Bassett MD ANESTHESIOLOGIST: Dr. Boogie. ANESTHESIA: General. PRE-OP DIAGNOSES: 1. Left hydronephrosis. 2. Left ureteral calculi. POST-OP DIAGNOSES: 1. Left hydronephrosis. 2. Left ureteral calculi. 3. Stricture left distal ureter. OPERATIVE PROCEDURE: Cystoscopy, left retrograde pyelogram, left ureteroscopy, laser lithotripsy of left ureteral calculi and left stent insertion. COMPLICATIONS: None. STENTS USED: 7-Malian stent left ureter. OPERATIVE FINDINGS: 1. Mild stricture bulbar urethra. 2. Mildly enlarged prostate. 3. Left hydronephrosis and proximal hydroureter with 2 calculi noted in left distal ureter with associated stricture and inflammatory response. POSTOPERATIVE CONDITION: Stable. INDICATION: Satish Mccormick is a 53-year-old gentleman who has had episodic left flank pain off and on for the last 3 months secondary to left ureteral calculi. DESCRIPTION OF PROCEDURE: After induction of general anesthesia, the patient was placed in dorsal lithotomy position. Sequential compression devices were in place and functioning. Initial cystoscopy revealed a mild non-obstructing stricture in the proximal bulbar urethra and a mildly enlarged prostate. The bladder was examined and was unremarkable. A guidewire was introduced into the left ureter and advanced under fluoroscopic monitoring. A 4-Malian open-ended catheter was introduced. There was significant resistance to advancement of the catheter at the level of the distal ureter and I suspect that this could be because of the stones having migrated distally. Retrograde pyelogram revealed fullness of the left collecting system consistent with obstruction. A 6-Malian semirigid ureteroscope was introduced and advanced under direct vision. A few centimeters above the ureterovesical junction, there was a focal area of narrowing of the ureter and 2 calculi were noted to be stuck just above this area with considerable inflammatory response. Using a 550 micron Holmium laser these were successfully broken up into multiple smaller pieces. Some of the pieces were withdrawn and sent for analysis, a 7- Malian stent was introduced and positioned under fluoroscopy with good proximal and distal positioning obtained. Because of the significant inflammatory response and the narrowing, my plan is to leave the stent in for a few weeks and to consider bringing him back for a followup ureteroscopy to make sure there are no sizable fragments remaining. The patient tolerated the procedure satisfactorily and was transferred back to the recovery area in stable condition. [id number]/[facility] #: [id number] [place]
== END | disposition home or self-care (01) ==
LOC: OR 09:07
PROVIDERS: ATTEND Urology
DX: N13.2 Hydronephrosis with renal and ureteral calculous obstruction (principal); N13.1 Hydronephrosis with ureteral stricture, not elsewhere classified; N40.0 Benign prostatic hyperplasia without lower urinary tract symptoms; N35.9 Urethral stricture, unspecified; Z87.891 Personal history of nicotine dependence; E29.1 Testicular hypofunction; F11.11 Opioid abuse, in remission
CPT/HCPCS: 74420; 82365; 88300; C1876; J0696; J1100; J1580; J1885; J2250; J2405; J2704; J3010

== ENCOUNTER 2018-04-02 07:01 | Day surgery (SDC) | payer BC ==
--- NOTE | 2018-03-30 22:06 | HP ---
CC: Dr. Carlo Melendez * ADMITTING HISTORY AND PHYSICAL: DATE OF ADMISSION: 04/02/18 ADMITTING DIAGNOSES: 1. Left hydronephrosis. 2. Left ureteral calculi. PLANNED PROCEDURE: Left ureteroscopy, possible laser and stent replacement. SURGEON: Dr. Bassett HISTORY OF PRESENT ILLNESS: Satish Mccormick is a 57-year-old gentleman who had previously undergone left ureteroscopy and stent insertion. At that time, he was noted to have 2 calculi in the left distal ureter with considerable inflammatory response and also an area of narrowing in the distal ureter. He is now being brought in for completion of fragmentation of the calculi and stent replacement. PAST MEDICAL HISTORY: Significant for history of renal calculi, history of opioid addiction, and hypogonadism. PAST SURGICAL HISTORY: Significant for left ureteroscopy on 03/10/18 and also for L4-L5 laminectomy in 2007. MEDICATIONS: On admission: 1. Flomax 0.4 mg once a day. 2. Suboxone daily. 3. Androderm daily as prescribed. ALLERGIES AND INTOLERANCES: CODEINE and COMPAZINE. SOCIAL HISTORY: Smoking history, he is an ex-smoker with a [id number] smoking history who quit about 3 years ago. REVIEW OF SYSTEMS: He is otherwise in excellent health. There is no history of diabetes mellitus or any other major systemic illness. PHYSICAL EXAMINATION GENERAL: Reveals a middle-aged gentleman. VITAL SIGNS: Blood pressure is 130/80, pulse 84 per minute and regular, respirations 16 per minute. LUNGS: Clear bilaterally. CARDIOVASCULAR: Regular rate and rhythm. S1, S2. ABDOMEN: Soft with left flank tenderness. IMPRESSION: A 57-year-old gentleman with multiple left ureteral calculi and a stricture in the left distal ureter. PLAN: Planned procedure is left ureteroscopy, possible laser and stent replacement. [id number]/[facility] #: [id number] [facility]
[~2018-04-02 07:01] MED LIST changes: -Acetaminophen IV 1GM/100ML * 1,000 MG/100 ML VIAL IVPB ONE; -Acetaminophen IV 1GM/100ML * 100 ML ONE; +Buffered Lidocaine 0.9% SYRIN* 5 ML/SYR SYRINGE INTRADERM ONE; +Dexamethasone IV* 4 MG/ML 1 ML (4 MG) IV SLOW PU ONE; -Dexamethasone IV* 4 MG/ML 1 ML (4 MG) ONE; -EPHEDrine (Pressors)* 50 MG/ML VIAL ONE; +Famotidine IV* 10 MG/ML 2 ML (20 mg) IV ONE; -Ketorolac INJ* 30 MG/ML 1 ML VIAL ONE; -Midazolam* 1 MG/ML 5 ML VIAL (5 MG) ONE; -Naloxone* 0.4 MG/ML 1 ML VIAL IV PRN; -Ondansetron INJ* 2 MG/ML VIAL IV PRN; -Ondansetron INJ* 2 MG/ML VIAL ONE; -Propofol* 10 MG/ML 20 ML BTL IV PUSH ONE; -Tamsulosin CAP* 0.4 MG ONE; -cefTRIAXone(*) 2 GM ADDV.VIAL IVPB ONE; -fentaNYL* 50 MCG/ML 2 ML VIAL (100 MCG VIAL) IV PRN; -fentaNYL* 50 MCG/ML 2 ML VIAL (100 MCG VIAL) ONE
[2018-04-02] MEDS ORDERED: cefTRIAXone(*) 2 GM ADDV.VIAL IVPB ONE (07:11)
[2018-04-02] MEDS ORDERED: Dexamethasone IV* 4 MG/ML 1 ML (4 MG) ONE (07:11)
[2018-04-02] MEDS ORDERED: Buffered Lidocaine 0.9% SYRIN* 5 ML/SYR SYRINGE ONE (07:11)
[2018-04-02] MEDS ORDERED: Famotidine IV* 10 MG/ML 2 ML (20 mg) ONE (07:11)
[2018-04-02] MEDS ORDERED: Midazolam* 1 MG/ML 2 ML VIAL (2 MG) ONE (07:37)
[2018-04-02] MEDS ORDERED: KETAMINE HCL* 50 MG/ML 10 ML VIAL ONE (07:37)
[2018-04-02] MEDS ORDERED: DiMENhydriNATE IV* 50 MG/ML VIAL IV PUSH PRN (09:13)
[2018-04-02] MEDS ORDERED: Ketorolac INJ* 30 MG/ML 1 ML VIAL IV PRN (09:13)
[2018-04-02] MEDS ORDERED: Naloxone* 0.4 MG/ML 1 ML VIAL IV PRN (09:13)
[2018-04-02] MEDS ORDERED: Ondansetron INJ* 2 MG/ML VIAL ONE (09:25)
[2018-04-02] MEDS ORDERED: Propofol* 10 MG/ML 20 ML BTL IV PUSH ONE (09:25)
--- NOTE | 2018-04-02 09:42 | RAD ---
INDICATION: Left ureteral stent placement. COMPARISON: Correlation is made with a prior study from March 10, 2018. TECHNIQUE: 6 seconds of intermittent fluoroscopic guidance were provided and 5 spot films of the abdomen were centered on the left side. FINDINGS: There is partial opacification of the left renal collecting system. Subsequently there is placement of a double-J stent catheter on the left side which demonstrates normal course. IMPRESSION: INTRAOPERATIVE CONTROL FILMS. CPT II Codes: G9500
[2018-04-02] MEDS ORDERED: Ketorolac INJ* 30 MG/ML 1 ML VIAL ONE (10:54)
[2018-04-02 11:01] VITALS: BP 110/72
--- NOTE | 2018-04-03 02:08 | OP ---
CC: Dr. Carlo Melendez * DATE OF OPERATION: 04/02/18 - [facility] DATE OF : 56 SURGEON: Ehsan Bassett MD ANESTHESIOLOGIST: Luis Armando Sandoval MD ANESTHESIA: General. PRE-OP DIAGNOSES: 1. Left hydronephrosis. 2. Left ureteral calculi. POST-OP DIAGNOSES: 1. Left hydronephrosis. 2. Left ureteral calculi. OPERATIVE PROCEDURE: Cystoscopy, left stent removal, left retrograde pyelogram , left ureteroscopy and stone removal and left stent insertion. INDICATIONS: Satish Mccormick is a 57-year-old gentleman who had previously undergone ureteroscopy for multiple left ureteral calculi. At that time, he was noted to have extensive inflammatory response and is now being brought in for followup procedure to remove any remaining calculi. OPERATIVE FINDINGS: 1. Edema and inflammation at the site of calculus impaction, left distal ureter. 2. Three small calculus fragments noted in the left distal ureter, removed successfully. COMPLICATIONS: None. STENT USED: 7-Zimbabwean left ureteral stent. POSTOPERATIVE CONDITION: Stable. DESCRIPTION OF PROCEDURE: After induction of general anesthesia, the patient was placed in dorsal lithotomy position. Sequential compression devices were in place and functioning. Initial cystoscopy revealed mild stricture in the proximal bulbar urethra, a mildly enlarged prostate. The bladder was examined. The previously placed stent was noted with calcifications on the distal aspect of the stent. The stent was removed. Retrograde pyelogram revealed fullness of the left collecting system. A 6-Zimbabwean semi-rigid ureteroscope was introduced and advanced under direct vision. There was still some residual edema and inflammation where the calculi had been impacted in the distal left ureter. There were 3 small calculus fragments noted and using a 3-pronged grasper, these were all successfully removed. The ureteroscope was advanced to the level of the mid ureter to make sure there were no additional calculi and none were noted. A 7-Zimbabwean stent was introduced and positioned under fluoroscopy with good proximal and distal positioning obtained. The bladder was emptied. The patient tolerated the procedure satisfactorily and was transferred back to the recovery area in stable condition. [id number]/[facility] #: [id number] [facility]
== END 2018-04-02 12:13 | disposition home or self-care (01) ==
LOC: OR 07:01
PROVIDERS: ATTEND Urology
DX: N13.2 Hydronephrosis with renal and ureteral calculous obstruction (principal); Z87.891 Personal history of nicotine dependence; E29.1 Testicular hypofunction; F11.20 Opioid dependence, uncomplicated
CPT/HCPCS: 74420; 82365; 88300; C2625; J0696; J1100; J1580; J1885; J2250; J2405; J2704

== ENCOUNTER 2018-05-16 13:45 | Observation (INO) | payer BC ==
[2018-05-16] MEDS ORDERED: NS 0.9% 1000 ML* 1,000 ML IV ONE ×2 (16:37→21:35)
[2018-05-16] MEDS ORDERED: Ketorolac INJ* 30 MG/ML 1 ML VIAL IV PUSH ONE (16:37)
--- NOTE | 2018-05-16 16:39 | ED ---
Abdominal Pain/Male - HPI Summary HPI Summary: A 57 y/o male presents to [facility] with a chief complaint of left flank pain since the morning of 05/16/18. He rates his pain as a 10/10 and describes his pain as sharp. He reports that he has had similar symptoms when he had a left kidney stone. He states that his pain worsens with movement. He also reports taking suboxone the morning of 05/16/18. - History of Current Complaint Chief Complaint: EDFlankPain Stated Complaint: LEFT FLANK PAIN Time Seen by Provider: 05/16/18 16:28 Hx Obtained From: Patient Onset/Duration: Sudden Onset, Lasting Hours, Still Present Timing: Constant, Lasting Hours Severity Initially: Severe Severity Currently: Severe Pain Intensity: 10 Pain Scale Used: 0-10 Numeric Location: Flank - left Radiates: No Character: Sharp Aggravating Factor(s): Movement Alleviating Factor(s): Nothing Associated Signs And Symptoms: Negative: Fever - Allergies/Home Medications Allergies/Adverse Reactions: Allergies Allergy/AdvReac Type Severity Reaction Status Date / Time codeine Allergy Hives Verified 05/16/18 14:14 prochlorperazine Allergy THROAT Verified 05/16/18 14:14 [From Compazine] SWELLING PMH/Surg Hx/FS Hx/Imm Hx Endocrine/Hematology History: Denies: Hx Diabetes Cardiovascular History: Denies: Hx Hypertension, Hx Pacemaker/ICD, Other Cardiovascular Problems/ Disorders Respiratory History: Denies: Other Respiratory Problems/Disorders GI History: Denies: Other GI Disorders History: Reports: Hx Kidney Stones - CURRENTLY AND IN THE PAST Denies: Hx Renal Disease Musculoskeletal History: Reports: Hx Back Problems - chronic low back pain, Other Musculoskeletal History - SCIATICA Sensory History: Reports: Hx Contacts or Glasses - INSTRUCTS GIVEN Denies: Hx Hearing Aid Opthamlomology History: Reports: Hx Contacts or Glasses - INSTRUCTS GIVEN Neurological History: Reports: Other Neuro Impairments/Disorders - PAIN CLINIC PT-FOR OCCASIONAL CORTISONE SHOT Psychiatric History: Reports: Hx Substance Abuse, Other Psychiatric Issues/ Disorders - suboxone treatment Denies: Hx Panic Disorder - Surgical History Surgery Procedure, Year, and Place: hemilaminectomy 2007 Dr Sly Blake. ORIF right ring finger 2016 [facility] [place]. 2018-SURGERY FOR KIDNEY STONE WITH STENT PLACEMENT Hx Anesthesia Reactions: No Infectious Disease History: No Infectious Disease History: Reports: Hx Hepatitis - TREATED FOR "C" A COUPLE OF YEARS AGO Denies: History Other Infectious Disease, Traveled Outside the [place] in Last 30 Days - Family History Known Family History: Positive: Other - rheumatoid arthritis Negative: Cardiac Disease - Social History Alcohol Use: Occasionally Alcohol Amount: 2-4 PER WEEK Hx Substance Use: Yes Substance Use Type: Reports: None Substance Use Comment - Amount & Last Used: ON SUBOXONE Hx Tobacco Use: Yes Smoking Status (MU): Former Smoker Type: Cigarettes Amount Used/How Often: 10 CIGS PER DAY X ON AND OFF 10 YEARS Have You Smoked in the Last Year: No Review of Systems Negative: Fever Positive: flank pain All Other Systems Reviewed And Are Negative: Yes Physical Exam - Summary Physical Exam Summary: Appearance: The patient is well-nourished in no acute distress and in no acute pain. Skin: The skin is warm and dry and skin color reflects adequate perfusion. HEENT: The head is normocephalic and atraumatic. The pupils are equal and reactive. The conjunctivae are clear and without drainage. Nares are patent and without drainage. Mouth reveals moist mucous membranes and the throat is without erythema and exudate. The external ears are intact. The ear canals are patent and without drainage. The tympanic membranes are intact. Neck: The neck is supple with full range of motion and non-tender. There are no carotid bruits. There is no neck vein distension. Respiratory: Chest is non-tender. Lungs are clear to auscultation and breath sounds are symmetrical and equal. Cardiovascular: Heart is regular rate and rhythm. There is no murmur or rub auscultated. There is no peripheral edema and pulses are symmetrical and equal. Abdomen: The abdomen is soft and non-tender. There are normal bowel sounds heard in all four quadrants and there is no organomegaly palpated. Musculoskeletal: There is no back tenderness noted. Extremities are non-tender with full range of motion. There is good capillary refill. There is no peripheral edema or calf tenderness elicited. Neurological: Patient is alert and oriented to person, place and time. The patient has symmetrical motor strength in all four extremities. Cranial nerves are grossly intact. Deep tendon reflexes are symmetrical and equal in all four extremities. Psychiatric: The patient has an appropriate affect and does not exhibit any anxiety or depression. Triage Information Reviewed: Yes Vital Signs On Initial Exam: Initial Vitals Temp Pulse Resp BP Pulse Ox 96.7 F 69 14 137/82 97 05/16/18 14:14 05/16/18 14:14 05/16/18 14:14 05/16/18 14:14 05/16/18 14:14 Vital Signs Reviewed: Yes Diagnostics - Vital Signs Vital Signs Temp Pulse Resp BP Pulse Ox 05/16/18 14:14 96.7 F 69 14 137/82 97 - Laboratory Result Diagrams: 05/16/18 16:44 05/16/18 16:44 Lab Statement: Any lab studies that have been ordered have been reviewed, and results considered in the medical decision making process. - CT abdomen/pelvis CT Interpretation Completed By: Radiologist Summary of CT Findings: 1. Low to intermediate density 6 x 6 mm stone distal left ureter at the UVJ with moderate hydronephrosis and ureterectasis. Additional nonobstructive left. renal stone. 2. Moderate infiltration in the left perirenal fat. 3. No other acute disease seen. As above. ED physician has reviewed this report. Abdominal Pain Fem Course/Dx - Course Course Of Treatment: Mr. Mccormick presented with left flank pain and a history of stones. He was in a significant amount of pain on arrival although his vital signs are stable and he was nontoxic in appearance. He was given IV Toradol and fluids while a CT and labs were obtained. CT revealed a 6 x 6 left UVJ stone. UA showed no sign of infection. He was not febrile. His pain did resolve well with Toradol but then recurred fairly quickly and he was given Dilaudid. He is a patient that uses Suboxone regularly and the Dilaudid was sufficient at 1 mg to help his pain. He he presents a difficult conundrum in in that it would be difficult to control his pain as an outpatient safely. He was sober dose if he overwhelms the Suboxone that he is currently taking. In the hospital we can watch him and give him appropriate pain control. Dr. Bassett recommended admission to the hospitalist service and hydration and will take him to the OR if he does not pass a stone on his own. Dr. Woodson was contacted for the hospitalist service will admit him - Diagnoses Provider Diagnoses: Kidney stone on left side, Intractable back pain - Provider Notifications Discussed Care Of Patient With: Lety Woodson Time Discussed With Above Provider: 21:40 Instructed by Provider To: Admit As Inpatient Discharge - Sign-Out/Discharge Documenting (check all that apply): Patient Departure - admit - Discharge Plan Condition: Fair Disposition: ADMITTED TO [facility] Referrals: Carlo Melendez MD [Primary Care Provider] - - Billing Disposition and Condition Condition: FAIR Disposition: Admitted to [facility] - Attestation Statements Document Initiated by May: Yes Documenting Scribe: Mikhail Reynolds Provider For Whom May is Documenting (Include Credential): Rodrigo Che MD Scribe Attestation: Mikhail Loaiza, scribed for Rodrigo Che MD on 05/16/18 at 2202. Scribe Documentation Reviewed: Yes Provider Attestation: The documentation as recorded by the Mikhail manriquez accurately reflects the service I personally performed and the decisions made by , Rodrigo Che MD Status of Scribe Document: Viewed
[2018-05-16 16:56] LABS: ABS Basophils 0 10^3/ul (0-0.2); ABS Eosinophils 0 10^3/ul (0-0.6); ABS Lymphocytes 1.1 10^3/ul (1.0-4.8); ABS Monocytes 0.5 10^3/ul (0-0.8); ABS Nucleated RBC 0 10^3/ul; Eosinophil % 0 %; Hematocrit 47 % (42-52); Hemoglobin 15.8 g/dl (14.0-18.0); Lymphocyte % 8.1 %; Mean Corpuscular HGB Conc 34 g/dl (31-36); Mean Corpuscular Hemoglobin 30 pg (27-31); Mean Corpuscular Volume 89 fL (80-94); Mean Platelet Volume 9.4 fL (7.4-10.4); Nucleated Red Blood Cells % 0.1; Platelet Count 190 10^3/ul (150-450); Red Blood Count 5.29 10^6/ul (4.00-5.40); Red Cell Distribution Width 13 % (10.5-15); White Blood Count 13.5 10^3/ul (3.5-10.8)
[2018-05-16 17:12] LABS: EGFR Non-African American 63.8 (>60)
[2018-05-16] MEDS ORDERED: HYDROmorphone INJ1* 1 MG/ML SYRINGE IV SLOW PU ONE (19:58)
[2018-05-16 20:51] LABS: Urine Appearance Cloudy; Urine Blood 2+ (Negative); Urine Color Yellow; Urine Ketones 1+ (Negative); Urine Protein 1+(30 mg/dL) (Negative); Urine Red Blood Cell 1+(3-5/hpf) (Absent); Urine Specific Gravity 1.029 (1.010-1.030); Urine Urobilinogen Negative (Negative); Urine White Blood Cell Absent (Absent)
[2018-05-16] MEDS ORDERED: Tamsulosin CAP* 0.4 MG PO ONE (21:38)
[2018-05-16] MEDS ORDERED: HYDROmorphone INJ1* 1 MG/ML SYRINGE IV SLOW PU PRN (22:14)
[2018-05-16] MEDS ORDERED: Ketorolac INJ* 30 MG/ML 1 ML VIAL IV PUSH PRN (22:18)
[2018-05-16] MEDS ORDERED: Ondansetron TAB* 4 MG PO PRN (22:19)
[2018-05-16] MEDS: HYDROmorphone INJ* 2 MG/ML CARPUJECT SYRINGE IV SLOW PU ONE ×2 (22:30→23:05)
[2018-05-16] MEDS ORDERED: HYDROmorphone INJ1* 1 MG/ML SYRINGE ONE (22:40)
[2018-05-16] MEDS: Ciprofloxacin 400MG IVPREMIX(* 400 MG/200 ML BAG IVPB SCH (23:21)
[2018-05-16] MEDS: NS 0.9% 1000 ML* 1,000 ML IV SCH (23:24)
--- NOTE | 2018-05-17 00:03 | HP ---
CC: Dr. Melendez * HISTORY AND PHYSICAL: DATE OF ADMISSION: 05/16/18 PRIMARY CARE PROVIDER: Dr. Melendez. CHIEF COMPLAINT: Left flank pain. HISTORY OF PRESENT ILLNESS: Mr. Mccormick is a 57-year-old male who has a history of left-sided nephrolithiasis requiring stent placement with subsequent stone extraction in March of this year as well as history of opioid addiction, currently on Suboxone, who presents to the emergency room with complaints of left flank pain. The patient states approximately 1 week ago, he began to feel discomfort in the left flank. He is unwilling to describe it for me other than stating it feels as if he had a stent in place. He had no other associated symptoms at that time. This morning, he states that the pain became very severe. He states that was much worse than the episode that he had during his last stone. Again, he will not describe the pain for me. He denies any fevers or chills. He states that he has been having sweats, but also states that those are associated with the pain spiking. He denies any dysuria. PAST MEDICAL HISTORY: 1. History of opioid addiction. 2. History of renal calculi. 3. Hypogonadism. PAST SURGICAL HISTORY: 1. L4-5 laminectomy. 2. Right finger surgery. 3. Left ureteral stone extraction and stent placement. MEDICATIONS: 1. Suboxone 8 mg-2 mg 1 film sublingual daily. 2. Naproxen 220 mg p.o. q.12 hours p.r.n. pain. 3. Testosterone 4 mg topically daily. 4. Nicotine patch 14 mg topically daily. 5. Zofran 4 mg p.o. q.6 hours p.r.n. nausea. ALLERGIES: CODEINE and COMPAZINE. FAMILY HISTORY: Mom at the age of 85. She had rheumatoid arthritis. Dad at the age of 85 with pneumonia. SOCIAL HISTORY: The patient is a former smoker. He quit smoking 2 to 3 years ago. He has a 30-pack year history of smoking. He states he drinks alcohol on occasions. He denies any recreational drug use. He works as a youth counselor. He is . He has 3 children. His Cecile is his healthcare proxy. REVIEW OF SYSTEMS: Complete 11-system review of systems is obtained. Pertinent positives and negatives are as per HPI. In addition, the patient does admit to shortness of breath with exertion which is usual for him. He did vomit on the morning of admission and he feels generalized weakness. PHYSICAL EXAMINATION GENERAL: The patient is a well-developed middle-aged male seen lying in the stretcher, in no acute distress. VITAL SIGNS: Blood pressure 152/96, pulse 87, respirations 18, temp 96.7, and O2 sat 95% on room air. HEENT: Pupils are equal and round. Extraocular muscles are intact. Oropharynx is clear. Oral mucosa is moist. There is no submandibular, cervical , or supraclavicular adenopathy. Thyroid is not enlarged. No thyroid nodules are noted. PULMONARY: Lungs are clear to auscultation bilaterally. CARDIAC: Normal S1, S2. Regular rate and rhythm. I do not appreciate any murmurs. ABDOMEN: Bowel sounds are present. Abdomen is soft, nontender and nondistended. There is left CVA tenderness. MUSCULOSKELETAL: There is no cyanosis or clubbing of the digits. There is full active range of motion of all 4 extremities. SKIN: Warm and dry. There are no rashes. NEURO: Cranial nerves II through XII are grossly intact. Sensation is intact to light touch throughout. Strength is 5/5 and symmetric in both upper and lower extremities bilaterally. PSYCH: The patient is alert. He is oriented x3. Affect appears appropriate. DIAGNOSTIC STUDIES AND LABORATORY DATA: WBC 13.5, hemoglobin 15.8, hematocrit 47, platelets 190. Sodium 138, potassium 3.9, chloride 104, CO2 24. BUN 27 and creatinine 1.17. Glucose 148. Lactic acid 1.8. Calcium 9.8. Bilirubin 0.7. AST 29 and ALT 29. Alk phos 53. CRP less than 1. Albumin 4.6. Lipase 11. Urinalysis reveals cloudy urine with specific gravity of 1.029, 1+ protein, 1+ ketones, 2+ blood, absent white blood cells and bacteria. CT abdomen and pelvis, low to intermediate density, 6 x 6 mm stone in the distal left ureter at the UVJ with moderate hydronephrosis and ureterectasis. Additional nonobstructive left renal stone is noted. There is moderate infiltration in the left perirenal fat. No other acute disease seen. ASSESSMENT AND PLAN: Mr. Mccormick is a 57-year-old male who has a history of prior left ureteral stone and history of opioid addiction, presents to the emergency room with complaints of left flank pain and is found to have obstructing 6 mm ureteral stone at the ureterovesical junction. 1. Left ureterovesical junction stone. The patient will be admitted and started on aggressive IV fluid hydration with normal saline at 150 mL per hour. Additionally, he will receive Flomax. Pain control will be achieved with IV Dilaudid. The patient is on Suboxone at home making achieving pain control somewhat difficult. For the time being, I will hold his Suboxone while he is on the Dilaudid. Dr. Bassett has been contacted by the emergency room. If the patient fails to pass the stone on his own, he will likely need to be taken to the OR for stent placement. Of note, the patient does have an elevation in his BUN and creatinine compared to his baseline. This likely is secondary to the obstruction that is present. The patient is not febrile nor he does have an elevated CRP and the urinalysis is not concerning for infection; however, he does have leukocytosis of 13,500. Additionally, there is report on the CT scan of perinephric fat infiltration. Because of this, I will go ahead and start Cipro 400 mg IV q.12 hours. 2. History of opioid addiction. As above, I am going to hold the patient's Suboxone while treating his acute pain. Upon discharge, Suboxone to be resumed. 3. Hypogonadism. I am going to hold the patient's Androderm patch for now as it is non-formulary. 4. DVT prophylaxis. According to the Adult Thrombosis Prophylaxis Risk Factor Assessment Guide, the patient has a total risk factor score of 2, making him moderate risk. Ambulation will be utilized as DVT prophylaxis as I suspect the patient will be able to be discharged to home in short order. 5. Code status is full. TIME SPENT: Sixty-five minutes was spent admitting this patient. [id number] #: [id number] [place]
[2018-05-17 05:57] LABS: ABS Basophils 0 10^3/ul (0-0.2); ABS Eosinophils 0 10^3/ul (0-0.6); ABS Lymphocytes 2.2 10^3/ul (1.0-4.8); ABS Monocytes 0.8 10^3/ul (0-0.8); ABS Neutrophils 10.4 10^3/ul (1.5-7.7); ABS Nucleated RBC 0 10^3/ul; Eosinophil % 0 %; Hematocrit 42 % (42-52); Hemoglobin 14.4 g/dl (14.0-18.0); Lymphocyte % 16.6 %; Mean Corpuscular HGB Conc 34 g/dl (31-36); Mean Corpuscular Hemoglobin 30 pg (27-31); Mean Corpuscular Volume 88 fL (80-94); Mean Platelet Volume 9.7 fL (7.4-10.4); Nucleated Red Blood Cells % 0.2; Platelet Count 171 10^3/ul (150-450); Red Blood Count 4.76 10^6/ul (4.00-5.40); Red Cell Distribution Width 13 % (10.5-15); White Blood Count 13.5 10^3/ul (3.5-10.8)
[2018-05-17] MEDS: NS 0.9% 1000 ML* 1,000 ML IV SCH (07:38)
[2018-05-17] MEDS ORDERED: Nicotine PATCH 14 MG/24 HR* PATCH TRANSDERM SCH (09:00)
[2018-05-17] MEDS ORDERED: Tamsulosin CAP* 0.4 MG PO SCH (09:00)
[2018-05-17] MEDS: Ciprofloxacin 400MG IVPREMIX(* 400 MG/200 ML BAG IVPB SCH (11:14)
[2018-05-17 11:48] VITALS: BP 124/81
--- NOTE | 2018-05-18 13:33 | DS ---
CC: Dr. Melendez; Dr. Ehsan Bassett * DISCHARGE SUMMARY: DATE OF ADMISSION: 05/16/18 DATE OF DISCHARGE: 05/17/18 PRIMARY CARE PROVIDER: Dr. Melendez. MY ATTENDING FOR TODAY: Dr. Esperanza Rodgers.* (DICTATED BY WILLIAM GIBSON NP) HOSPITAL COURSE: In short, this is a 57-year-old male who has a history of left - sided nephrolithiasis in the past and also had some stent placement in the past. He had a subsequent stone extraction in March of this year. The patient also has a past medical history of opioid addiction and has been on Suboxone therapy. The patient reported to the emergency department with complaints of continued left- sided flank pain. Imaging revealed an obstructing stone and hydronephrosis. The patient was brought in for admission. He received aggressive hydration, pain medication and was seen by Dr. Bassett of Urology. However, the patient did pass his stone, which was noted by the nursing staff. The patient had a repeat ultrasound after the stone was passed and showed resolution of his hydronephrosis. The patient was feeling well, had no fever, no further complaints. He is ambulatory. No chills, no chest pain, no shortness of breath, flank pain was improving and he was readied for discharge. The patient was cleared by Dr. Bassett as well. The patient did not require any additional antibiotic therapy. He did have a dose of Flomax while hospitalized. This was not continued at discharge. DISCHARGE DIAGNOSES: 1. Left ureteral stone with subsequent hydronephrosis, now resolved. 2. History of opioid addiction. 3. History of renal calculi in the past. 4. History of low testosterone. MEDICATION FOR DISCHARGE: Include: 1. Suboxone 8/2 mg 1 film sublingual daily. 2. Naproxen 220 mg p.o. q.12 hours as needed. 3. Testosterone 4 mg topical daily. 4. Nicotine patch 14 mg topical daily. 5. Zofran 4 mg p.o. q.6 hours as needed for nausea. REVIEW OF SYSTEMS: A 10-point review of systems is negative, except as noted in hospital course above. PHYSICAL EXAM: Vital Signs: Blood pressure 124/81, heart rate 76, respiratory rate 18, O2 saturation 99% on room air with temperature 98.6. HEENT: The patient is atraumatic, normocephalic, PERRLA with nonicteric sclera. Oral mucosa is moist. Tongue is midline. Neck is supple. Nontender. No JVD noted. No carotid bruit auscultated. Cardiovascular: S1, S2 present. No murmurs, gallops, or rubs noted. Rate and rhythm are regular. Lungs are clear bilaterally to auscultation with no wheezing, rhonchi, or rales. He does have some mild CVA tenderness across the posterior portion of the left flank, which has improved. Abdomen is soft, nontender, nondistended. Positive bowel sounds in all 4 quadrants. is deferred. Musculoskeletal: There is no clubbing, no cyanosis, no edema. He has +2 distal pulses palpable. Steady gait. Neurologic grossly intact with no focal deficits. Psychiatric: Cooperative and appropriate. LABORATORY DATA: WBC is 13.5, RBC is 4.76, hemoglobin 14.4, hematocrit 42, platelets 171. Sodium 138, potassium 3.9, chloride 104, CO2 of 24, BUN 27, creatinine 1.17, GFR 63.8, glucose 148, lactic acid 1.8. Liver function within normal limits. Urinalysis showed 1+ protein, 1+ ketones, 2+ blood, 1+ rbc's, negative for leukocyte esterase and negative for nitrites. IMAGING: CT of the abdomen and pelvis dated 05/16/18 showed low to intermediate densities 6 x 6 mm stone distal left ureter at the UVJ with moderate hydronephrosis and additional nonobstructive left renal stone was also noted. Moderate infiltration of the left perirenal fat, no other acute disease is seen. DISPOSITION: The patient was discharged to home in stable condition after he is cleared by Dr. Bassett. FOLLOWUP: The patient was instructed to follow up with Dr. Bassett and also his primary care provider on an as needed basis. Dr. Bassett's office will arrange for followup with him at the appropriate time. The patient was discharged in stable condition. All questions were answered. The patient stated understanding of his discharge diagnoses, medications, and followups. TIME SPENT: >35 minutes on discharge planning. WILLIAM GIBSON NP [id number]/[facility] #: [id number] [facility]
== END 2018-05-17 15:30 | disposition home or self-care (01) ==
LOC: ED 14:04 → SSU 22:14
PROVIDERS: ADMIT Hospitalist; ATTEND Internal Medicine
DX: N20.1 Calculus of ureter (principal); F11.20 Opioid dependence, uncomplicated; Z87.442 Personal history of urinary calculi; E29.1 Testicular hypofunction; R50.9 Fever, unspecified; Z87.891 Personal history of nicotine dependence; R10.84 Generalized abdominal pain
CPT/HCPCS: 36415; 74176; 76770; 80053; 81003; 81015; 82365; 83605; 83690; 85025; 86140; 96361; 96365; 96366; 96375; 99284; A9270-GY; G0378; J0744; J1170; J1885

== ENCOUNTER 2018-12-05 14:21 | Emergency (ER) | payer BC, OTHER ==
[2018-12-05] MEDS ORDERED: ceFAZolin 1 GM ADVAN(*) 1 GM in NS 0.9% 50 ML* 50 ML IVPB ONE (16:09)
[2018-12-05] MEDS ORDERED: Ketorolac INJ* 30 MG/ML 1 ML VIAL IV PUSH ONE (16:11)
[2018-12-05] MEDS ORDERED: HYDROmorphone INJ1* 1 MG/ML SYRINGE IV ONE ×2 (16:21→18:05)
[2018-12-05] MEDS ORDERED: Tetan/Diph/Pertus SYR(Tdap)* 0.5 ML SYR(BOOSTRIX) use SYR IM ONE (16:21)
[2018-12-05] MEDS ORDERED: Lidocaine 1%** 5 ML VIAL INJ ONE (16:22)
--- NOTE | 2018-12-05 16:24 | ED ---
Lower Extremity - HPI Summary HPI Summary: Patient is a 4-year-old male who presents emergency department for injury to his right great toe that occurred just prior to arrival. Symptoms are mild in severity. Patient states he was mowing the grass on a hill when his foot and went underneath the lawnmower. Pt. wearing sneakers at time of accident. Patient unaware of his last tetanus immunization. No significant past medical history, been opioid dependence and is currently on Suboxone. Touching affected area makes symptoms worse. Nothing makes symptoms better. No other injuries sustained. - History of Current Complaint Chief Complaint: EDLacSutureRecheck Stated Complaint: RIGHT FOOT LAC FROM MOWER PER PT Time Seen by Provider: 12/05/18 16:01 Hx Obtained From: Patient Pain Intensity: 10 - Allergies/Home Medications Allergies/Adverse Reactions: Allergies Allergy/AdvReac Type Severity Reaction Status Date / Time codeine Allergy Hives Verified 12/05/18 14:30 prochlorperazine Allergy THROAT Verified 12/05/18 14:30 [From Compazine] SWELLING PMH/Surg Hx/FS Hx/Imm Hx Previously Healthy: Yes Endocrine/Hematology History: Denies: Hx Diabetes Cardiovascular History: Denies: Hx Hypertension, Hx Pacemaker/ICD, Other Cardiovascular Problems/ Disorders Respiratory History: Denies: Other Respiratory Problems/Disorders GI History: Denies: Other GI Disorders History: Reports: Hx Kidney Stones Denies: Hx Renal Disease Musculoskeletal History: Reports: Hx Back Problems - chronic low back pain, Other Musculoskeletal History - SCIATICA Sensory History: Reports: Hx Contacts or Glasses Denies: Hx Hearing Aid Opthamlomology History: Reports: Hx Contacts or Glasses Neurological History: Reports: Other Neuro Impairments/Disorders - PAIN CLINIC PT-FOR OCCASIONAL CORTISONE SHOT Psychiatric History: Reports: Hx Substance Abuse, Other Psychiatric Issues/ Disorders - suboxone treatment Denies: Hx Panic Disorder - Surgical History Surgery Procedure, Year, and Place: hemilaminectomy 2007 Dr Sly Blake. [place] right ring finger [place] [facility] [place]SURGERY FOR KIDNEY STONE WITH STENT PLACEMENT Hx Anesthesia Reactions: No Infectious Disease History: No Infectious Disease History: Reports: Hx Hepatitis - TREATED FOR hep C Denies: History Other Infectious Disease, Traveled Outside the [place] in Last 30 Days - Family History Known Family History: Positive: Other - rheumatoid arthritis, Non-Contributory Negative: Cardiac Disease - Social History Occupation: Employed Full-time Lives: With Family Alcohol Use: None Alcohol Amount: 2-4 PER WEEK Hx Substance Use: Yes Substance Use Type: Reports: None Substance Use Comment - Amount & Last Used: ON SUBOXONE Hx Tobacco Use: Yes Smoking Status (MU): Former Smoker Type: Cigarettes Amount Used/How Often: 10 CIGS PER DAY X ON AND OFF 10 YEARS Have You Smoked in the Last Year: No Review of Systems Positive: Other - right great toe injury Positive: Other - avulsion right great toe All Other Systems Reviewed And Are Negative: Yes Physical Exam Triage Information Reviewed: Yes Vital Signs On Initial Exam: Initial Vitals Temp Pulse Resp BP Pulse Ox 97.3 F 91 16 115/86 97 12/05/18 14:24 12/05/18 14:24 12/05/18 14:24 12/05/18 14:24 12/05/18 14:24 Vital Signs Reviewed: Yes Appearance: Positive: Pain Distress - Pt. lying in bed appears in pain but nontoxic. present. Skin: Positive: Warm, Dry Head/Face: Positive: Normal Head/Face Inspection Eyes: Positive: Normal, EOMI Neck: Positive: Supple Musculoskeletal: Positive: Other - Large wedge shape skin and nail avulsion noted to the great left toe. Minimal acitive bleeding. Plantar tissue intact. Neurological: Positive: Normal, Reflexes Intact Psychiatric: Positive: Affect/Mood Appropriate Procedures - Procedure Summary Procedure Summary: Digital block: Left great toe was cleansed with alcohol prep and 4cc of lidocaine injected. Wound care: Avulsion to left great toe was extensively irrigated with 500cc NS. Grass particles were removed with pickups. Wound was cleansed and soaked in a hibiclens mixture for about 20-30 minutes. Surgicel used at base of wound given mild ongoing bleeding. Nonadhesive dressing placed with pressure dressing. Splint: Posterior OCL splint placed for comfort. Diagnostics - Vital Signs Vital Signs Temp Pulse Resp BP Pulse Ox 12/05/18 14:24 97.3 F 91 16 115/86 97 - Laboratory Lab Statement: Any lab studies that have been ordered have been reviewed, and results considered in the medical decision making process. Lower Extremity Course/Dx - Course Course Of Treatment: Pt. presenting with open fx and skin avulsion of left great toe. Pt. given IV ancef and tetanus updated. Pt. currently on suboxone. Pain control discussed with Dr. Romano who recommended IV dilaudid, 1mg given. Digital block also performed. Foot xray per radiology: REPORT AND IMPRESSION: #. Traumatic compound fracture of the distal phalanx of the great toe at level of the diaphysis. The amputated tuft is absent. Associated distal soft tissue defect. Normal articular alignment. Case discussed with Dr. Titus who reviewed xrays and recommends approximating wound as much as possible and f.u in clinic. Wound care as noted above. Wound was extensively irrigated and cleaned and sterile dressing placed. Splint and crutches for comfort. Pt.'s pain very difficult to control given suboxone use. He was given a total of 2mg dilaudid and a digital block with minimal pain control. Pt. comfortable with dc home to f.u with ortho in 1-2 days. Advised to call his PCP to discuss suboxone and possibiltiy for additional pain medication. Advised taking tylenol and motrin tonight. To elevate leg and apply cool compresses. Will return to ER if sxs change or worsen. Keflex rx. Pt. understands and agrees with plan. - Diagnoses Differential Diagnosis/HQI/PQRI: Positive: Dislocation, Foreign Body, Fracture ( Open), Puncture Wound Provider Diagnoses: Open toe fracture, Avulsion of skin of toe Discharge - Sign-Out/Discharge Documenting (check all that apply): Patient Departure Patient Received Moderate/Deep Sedation with Procedure: No - Discharge Plan Condition: Good Disposition: HOME Prescriptions: Cephalexin CAP* [Keflex CAP*] 500 mg PO QID #40 cap Patient Education Materials: Toe Fracture (ED), Toe Amputation (DC) Referrals: Carlo Melendez MD [Primary Care Provider] - Moncho Titus MD [Medical Doctor] - Additional Instructions: Call the orthopedic clinic tomorrow morning for close follow up appointment Antibiotic as directed Tylenol or Motrin for pain as directed Elevate and ice intermittently Return to ER if symptoms change or worsen - Billing Disposition and Condition Condition: GOOD Disposition: Home
[2018-12-05 19:29] VITALS: BP 119/76
== END 2018-12-05 19:39 | disposition home or self-care (01) ==
LOC: ED 14:21
DX: S92.421B Displaced fracture of distal phalanx of right great toe, initial encounter for open fracture (principal); Z23 Encounter for immunization; W31.89XA Contact with other specified machinery, initial encounter; Y93.H2 Activity, gardening and landscaping; Z87.891 Personal history of nicotine dependence
CPT/HCPCS: 90471; 90715; 96372; 96374; 96375; 99285; J0690; J1170; J1885